=== PATIENT | male | born 1990 ===

== ENCOUNTER 2020-10-07 21:01 | Emergency (ER) | payer SELFPAY ==
[2020-10-08 01:42] VITALS: BP 142/88
[2020-10-08] MEDS ORDERED: IBUPROFEN ORAL LIQD 100 MG/5 ML ORAL.LIQD PO ONE (01:54)
[2020-10-08] MEDS ORDERED: LIDOCAINE VISCOUS 2% 15 ML ORAL LIQD PO ONE (01:54)
--- NOTE | 2020-10-08 01:59 | Emergency Department Report ---
ED General Adult HPI - General Chief complaint: Sore Throat Stated complaint: SORE THROAT Source: patient Mode of arrival: Ambulatory Limitations: Language Barrier - History of Present Illness Initial comments: Patient is a 29-year-old male with a history of hypothyroidism who presents to the ED with complaint of acute onset persistent sore throat with dysphagia for the last 4 days. Patient states that the pain is worse with swallowing liquid food or fluids and states that the pain is sharp and constant and that whenever he tries to swallow something it appears as if there is a foreign body sensation in his throat. Patient denies dizziness, syncope, fever, chills, nausea and vomiting, cough, nasal and sinus congestion, traumatic injury, chest pain or shortness of breath and headache. MD Complaint: Sore throat, dysphagia -: Sudden, days(s) (4) Location: mouth Radiation: non-radiation Severity scale (0 -10): 4 Quality: aching, sharp Consistency: constant Improves with: none Worsens with: eating Associated Symptoms: denies other symptoms. denies: confusion, chest pain, cough, diaphoresis, fever/chills, headaches, loss of appetite, malaise, nausea/vomiting, rash, seizure, shortness of breath, syncope, weakness, other Treatments Prior to Arrival: none - Related Data Previous Rx's Medication Instructions Recorded Last Taken Type Azithromycin [Zithromax Z-VANDANA] 250 mg PO DAILY #6 tablet 10/08/20 Unknown Rx Ibuprofen [Motrin] 600 mg PO Q8H PRN #30 tablet 10/08/20 Unknown Rx Lidocaine Viscous 2% 10 ml PO Q6H PRN #120 ml 10/08/20 Unknown Rx Allergies Allergy/AdvReac Type Severity Reaction Status Date / Time No Known Allergies Allergy Unverified 10/08/20 01:42 ED Review of Systems ROS: Stated complaint: SORE THROAT Other details as noted in HPI Constitutional: denies: chills, fever Eyes: denies: eye pain, eye discharge, vision change ENT: throat pain (Sore throat and dysphagia). denies: ear pain Respiratory: denies: cough, shortness of breath, wheezing Cardiovascular: denies: chest pain, palpitations Endocrine: no symptoms reported Gastrointestinal: denies: abdominal pain, nausea, vomiting, diarrhea Genitourinary: denies: urgency, dysuria Musculoskeletal: denies: back pain, joint swelling, arthralgia Skin: denies: rash, lesions Neurological: denies: headache, weakness, paresthesias Psychiatric: denies: anxiety, depression Hematological/Lymphatic: denies: easy bleeding, easy bruising ED Past Medical Hx - Past Medical History Previous Medical History?: Yes Additional medical history: thyroid - Surgical History Past Surgical History?: No - Medications Home Medications: Home Medications Medication Instructions Recorded Confirmed Last Taken Type Azithromycin [Zithromax Z-VANDANA] 250 mg PO DAILY #6 tablet 10/08/20 Unknown Rx Ibuprofen [Motrin] 600 mg PO Q8H PRN #30 tablet 10/08/20 Unknown Rx Lidocaine Viscous 2% 10 ml PO Q6H PRN #120 ml 10/08/20 Unknown Rx ED Physical Exam - General Limitations: Language Barrier General appearance: alert, in no apparent distress - Head Head exam: Present: atraumatic, normocephalic, normal inspection - Eye Eye exam: Present: normal appearance, PERRL, EOMI Pupils: Present: normal accommodation - ENT ENT exam: Present: mucous membranes moist, TM's normal bilaterally, normal external ear exam, other (Mild erythematous oropharynx with swollen left tonsil) - Neck Neck exam: Present: normal inspection, full ROM, lymphadenopathy (Left cervical lymphadenopathy). Absent: tenderness - Respiratory Respiratory exam: Present: normal lung sounds bilaterally. Absent: respiratory distress, wheezes, rales, rhonchi, chest wall tenderness, accessory muscle use, decreased breath sounds - Cardiovascular Cardiovascular Exam: Present: regular rate, normal rhythm, normal heart sounds. Absent: systolic murmur, diastolic murmur, rubs, gallop - GI/Abdominal GI/Abdominal exam: Present: soft, normal bowel sounds. Absent: tenderness, guarding, rigid, hyperactive bowel sounds, hypoactive bowel sounds, organomegaly - Extremities Exam Extremities exam: Present: normal inspection, full ROM, normal capillary refill - Back Exam Back exam: Present: normal inspection, full ROM. Absent: tenderness, CVA tenderness (R), CVA tenderness (L), muscle spasm, paraspinal tenderness, vertebral tenderness - Neurological Exam Neurological exam: Present: alert, oriented X3, CN II-XII intact, normal gait, reflexes normal - Psychiatric Psychiatric exam: Present: normal affect, normal mood - Skin Skin exam: Present: warm, dry, intact, normal color. Absent: rash ED Course Vital Signs 10/08/20 01:41 Temperature 98.3 F Pulse Rate 62 Respiratory 18 Rate Blood Pressure 142/88 [Right] O2 Sat by Pulse 100 Oximetry ED Medical Decision Making - Medical Decision Making This is a 29-year-old male with a history of hypothyroidism who presents to the ED with complaint of acute onset persistent sore throat with dysphagia for the last 4 days. Patient states that the pain is worse with swallowing liquid food or fluids and states that the pain is sharp and constant and that whenever he tries to swallow something it appears as if there is a foreign body sensation in his throat. In the ED, patient is alert and oriented x3 and is not in any distress. Patient was treated for pain in the ED and based on the history and physical exam findings, patient symptoms are likely due to acute pharyngitis, acute tonsillitis and versus acute esophagitis. Patient was discharged home on medications and advised to follow-up with his primary care physician in 7 to 10 days for reevaluation or return to the ED immediately if symptoms get worse. - Differential Diagnosis Acute tonsillitis / pharyngitis; acute esophagitis; esophageal abrasions Critical care attestation.: If time is entered above; I have spent that time in minutes in the direct care of this critically ill patient, excluding procedure time. ED Disposition Clinical Impression: Acute esophagitis, Anterior cervical lymphadenopathy Acute pharyngitis Qualifiers: Pharyngitis/tonsillitis etiology: other specified organisms Qualified Code(s): J02.8 - Acute pharyngitis due to other specified organisms Acute tonsillitis Qualifiers: Pharyngitis/tonsillitis etiology: other specified organisms Qualified Code(s): J03.80 - Acute tonsillitis due to other specified organisms; J03.8 - Acute tonsillitis due to other specified organisms Disposition: DC-01 TO HOME OR SELFCARE Is pt being admited?: No Does the pt Need Aspirin: No Condition: Stable Instructions: Tonsillitis, [id number], Pharyngitis, [id number], Esophagitis Additional Instructions: Es probable que nuestros sntomas se deban a abrasin esofgica versus amigdalitis versus faringitis o laringitis. Por lo tanto, tome la medicacin con alimentos, joe muchos lquidos y realice un seguimiento con horowitz mdico de atencin primaria diaz para rachel reevaluacin. Regrese al servicio de urgencias de inmediato si los sntomas empeoran. Prescriptions: Lidocaine Viscous 2% 10 ml PO Q6H PRN #120 ml PRN Reason: Sore Throat Ibuprofen [Motrin] 600 mg PO Q8H PRN #30 tablet PRN Reason: Pain Azithromycin [Zithromax Z-VANDANA] 250 mg PO DAILY #6 tablet Referrals: [facility] [Provider Group] - 7-10 days Time of Disposition: 02:01 Print Language: [place]
== END 2020-10-08 01:41 | disposition home or self-care (01) ==
LOC: ED 21:01
DX: J03.80 Acute tonsillitis due to other specified organisms (principal); K20.90 Esophagitis, unspecified without bleeding; R59.0 Localized enlarged lymph nodes; Z79.899 Other long term (current) drug therapy